=== PATIENT | female | born 1930 | race African-American/Black ===

== ENCOUNTER 2017-09-12 12:02 | Emergency (ER) | payer OTHER ==
[~2017-09-12] VITALS: Ht 157.5 cm; Wt 77.1 kg
[~2017-09-12 12:02] MED LIST: ASA81 MG; AVALIDE 150-12.1 TA1; DICLOFENAC POTA50 MG; NABUMETONE500 MG; TOBRADEX EYE DR10 ML OP
== END 2017-09-12 14:48 | disposition home or self-care (01) ==
LOC: ER 12:02
DX: M54.5 Low back pain (principal)

== ENCOUNTER 2018-06-06 10:27 | Emergency (ER) | payer OTHER ==
[~2018-06-06] VITALS: Ht 162.6 cm; Wt 81.6 kg
[2018-06-06] MEDS ORDERED: AVALIDE 300-121 EACH PO (10:38)
[2018-06-06] MEDS ORDERED: CELEBREX50 MG PO (12:03)
== END 2018-06-06 12:17 | disposition home or self-care (01) ==
LOC: ER 10:27
DX: M21.611 Bunion of right foot (principal); M79.674 Pain in right toe(s)

== ENCOUNTER 2019-01-05 08:48 | Emergency (ER) | payer OTHER ==
[~2019-01-05] VITALS: Ht 162.6 cm; Wt 81.6 kg
[~2019-01-05 08:48] MED LIST changes: +AVALIDE 300-121 EACH PO; +CELEBREX50 MG PO
[2019-01-05] MEDS ORDERED: LIPITOR20 MG (09:11)
[2019-01-05] MEDS ORDERED: ZITHROMAX500 MG PO (10:57)
[2019-01-05] MEDS ORDERED: DOLOGEN CAPLET1 EACH PO (10:57)
[2019-01-05] MEDS ORDERED: TUSNEL LIQUID178 ML PO (10:57)
== END 2019-01-05 11:00 | disposition home or self-care (01) ==
LOC: ER 08:48
DX: B33.8 Other specified viral diseases (principal)

== ENCOUNTER 2019-05-26 15:29 | Emergency (ER) | payer OTHER ==
[~2019-05-26] VITALS: Ht 175.3 cm; Wt 81.6 kg
[~2019-05-26 15:29] MED LIST changes: +DOLOGEN CAPLET1 EACH PO; +LIPITOR20 MG; +TUSNEL LIQUID178 ML PO; +ZITHROMAX500 MG PO
== END 2019-05-26 19:35 | disposition home or self-care (01) ==
LOC: ER 15:29 → EDBD 15:31 → ER 19:35
DX: K52.9 Noninfective gastroenteritis and colitis, unspecified (principal)

== ENCOUNTER 2019-06-03 10:28 | Emergency (ER) | payer OTHER ==
[~2019-06-03] VITALS: Ht 162.6 cm; Wt 81.6 kg
[~2019-06-03 10:28] MED LIST changes: +AVALIDE 300-121 EACH; -AVALIDE 300-121 EACH PO
== END 2019-06-03 15:44 | disposition home or self-care (01) ==
LOC: ER 10:28 → EDBD 10:38 → ER 10:38
DX: K52.9 Noninfective gastroenteritis and colitis, unspecified (principal)

== ENCOUNTER 2019-06-06 14:18 | Inpatient (IN) | payer OTHER ==
[~2019-06-06] VITALS: Ht 165.1 cm; Wt 78.9 kg
[2019-06-06] MEDS ORDERED: INTESTINEX680 M1 (14:41)
[2019-06-06] MEDS ORDERED: IMODIUM A-D2 M2 (14:41)
[2019-06-07] MEDS ORDERED: HYDROCHLOROTH12.5 MG (13:26)
[2019-06-07] MEDS ORDERED: IRBESARTAN150 MG (13:26)
[2019-06-07] MEDS ORDERED: PLAVIX75 MG (13:26)
[2019-06-07] MEDS ORDERED: ROSUVASTATIN CA20 MG (13:26)
[2019-06-07] MEDS ORDERED: PENTOXIFYLLINE400 MG (13:26)
== END 2019-06-10 14:16 | disposition home or self-care (01) | DRG 641 ==
LOC: ER 14:18 → MEDI 06-07 09:55
PROVIDERS: ADMIT Specialist
PROC: 4A033R1 Measurement of Arterial Saturation, Peripheral, Percutaneous Approach (ICD-10-PCS; principal; 2019-06-07)
DX: E86.0 Dehydration (principal); N39.0 Urinary tract infection, site not specified; N17.9 Acute kidney failure, unspecified; K52.9 Noninfective gastroenteritis and colitis, unspecified; M25.571 Pain in right ankle and joints of right foot; I73.89 Other specified peripheral vascular diseases; I25.10 Atherosclerotic heart disease of native coronary artery without angina pectoris; I11.9 Hypertensive heart disease without heart failure; E78.00 Pure hypercholesterolemia, unspecified; B96.29 Other Escherichia coli [E. coli] as the cause of diseases classified elsewhere

== ENCOUNTER 2020-05-07 10:51 | Emergency (ER) | payer OTHER ==
[~2020-05-07] VITALS: Ht 162.6 cm; Wt 81.6 kg
[~2020-05-07 10:51] MED LIST changes: +HYDROCHLOROTH12.5 MG; +IMODIUM A-D2 M2; +INTESTINEX680 M1; +IRBESARTAN150 MG; +PENTOXIFYLLINE400 MG; +PLAVIX75 MG; +ROSUVASTATIN CA20 MG
== END 2020-05-07 14:15 | disposition home or self-care (01) ==
LOC: ER 10:51
DX: M16.12 Unilateral primary osteoarthritis, left hip (principal); M19.072 Primary osteoarthritis, left ankle and foot

== ENCOUNTER 2020-08-22 09:31 | Outpatient (CLI) | payer OTHER | END 2020-08-22 09:33 | disposition home or self-care (01) | LOC: NUCLEAR 09:31 | PROVIDERS: ATTEND Specialist | DX: I70.213 Atherosclerosis of native arteries of extremities with intermittent claudication, bilateral legs (principal) ==